=== PATIENT | male | born 1960 | race Caucasian/White ===

== ENCOUNTER → 2017-08-27 | Outpatient (CLI) | payer OTHER ==
[~2017-08-27] VITALS: Ht 177.8 cm; Wt 90.7 kg
[~2017-08-27] MED LIST: DIPHENHIST50 MG PO; INDERAL80 MG PO; OMEPRAZOLE 20 M20 M1 PO; ONDANSETRON HCL4 M2 PO; OXYCODON-ACETA1 EAC1 PO
[2017-08-27 07:56] LABS: HEMATOCRIT 34.3 % (42.0-52.0); HEMOGLOBIN 11.3 gm/dL (14.0-18.0); MCH 30.7 pg (26.0-34.0); MCV 92.9 fL (80.0-100.0); RBC 3.69 mil/uL (4.50-6.00); RDW 20.6 % (10.5-14.5); WBC 8.1 thou/uL (4.0-11.0)
[2017-08-27 07:59] VITALS: BP 118/76
[2017-08-27 08:07] LABS: CREATININE 1.6 mg/dL (0.7-1.3); POTASSIUM 4.1 mmol/L (3.5-5.1)
[2017-08-27 08:12] LABS: INR 1.1; PROTIME 11.2 Seconds (9.3-11.4)
== END | disposition home or self-care (01) ==
LOC: SPEC 07:29
PROVIDERS: Radiology Diagnostic Radiology
DX: K83.1 Obstruction of bile duct (principal); K83.8 Other specified diseases of biliary tract; R18.8 Other ascites; I10 Essential (primary) hypertension; K21.9 Gastro-esophageal reflux disease without esophagitis; Z85.038 Personal history of other malignant neoplasm of large intestine; Z94.4 Liver transplant status; Z85.05 Personal history of malignant neoplasm of liver; Z98.890 Other specified postprocedural states; Z79.891 Long term (current) use of opiate analgesic; Z79.899 Other long term (current) drug therapy

== ENCOUNTER 2017-08-28 20:05 | Emergency (ER) | payer OTHER ==
[~2017-08-28] VITALS: Ht 177.8 cm; Wt 93.0 kg
== END 2017-08-28 21:27 | disposition home or self-care (01) ==
LOC: ER 20:05
DX: L76.82 Other postprocedural complications of skin and subcutaneous tissue (principal); S31.119A Laceration without foreign body of abdominal wall, unspecified quadrant without penetration into peritoneal cavity, initial encounter; I10 Essential (primary) hypertension; K21.9 Gastro-esophageal reflux disease without esophagitis; Z85.05 Personal history of malignant neoplasm of liver; X58.XXXA Exposure to other specified factors, initial encounter